=== PATIENT | female | born 1965 | race Caucasian/White ===

== ENCOUNTER → 2017-11-26 | Outpatient (CLI) | payer BC | LOC: M RAD 06:51 | DX: K82.8 Other specified diseases of gallbladder (principal) | CPT/HCPCS: J2805 ==

== ENCOUNTER → 2025-02-15 | Outpatient (CLI) | payer BC ==
[~2025-02-15] MED LIST: ATEN50TA2 PO; OMEP10CASR PO; PRAV40TA85 PO; TRAZ-252 PO; TRIA37.5 PO; ZOLO50TA PO
== END ==
LOC: M PLAIMG 08:11
PROVIDERS: ATTEND Physician Assistant Surgical
DX: M17.11 Unilateral primary osteoarthritis, right knee (principal); S83.511A Sprain of anterior cruciate ligament of right knee, initial encounter; Y93.9 Activity, unspecified; Y92.9 Unspecified place or not applicable; M71.21 Synovial cyst of popliteal space [Baker], right knee